=== PATIENT | male | born 1975 | race Caucasian/White ===

== ENCOUNTER → 2016-07-07 | Outpatient (CLI) | payer BC | LOC: COL.VAS 13:44 | DX: R55 Syncope and collapse (principal); R94.39 Abnormal result of other cardiovascular function study ==

== ENCOUNTER 2017-04-08 17:30 | Emergency (ER) | payer BC ==
[~2017-04-08] VITALS: Ht 182.9 cm; Wt 86.4 kg
[2017-04-08 17:33] VITALS: BP 136/76; TEMP 97.8
[2017-04-08 18:10] VITALS: PULSE 62
== END 2017-04-08 18:12 | disposition home or self-care (01) ==
LOC: COL.ER 17:30
DX: K64.5 Perianal venous thrombosis (principal)

== ENCOUNTER 2023-07-13 07:29 | Day surgery (SDC) | payer BC ==
[~2023-07-13] VITALS: Ht 182.9 cm; Wt 86.7 kg
[~2023-07-13 07:29] MED LIST: LR 1,000 ML IV SCH; Ondansetron 4 MG/2 ML VIAL IV PRN
[2023-07-13 08:26] VITALS: BP 110/84; PULSE 71; TEMP 96.2
[2023-07-13] MEDS ORDERED: Lidocaine PF 2% (20 MG/ML) 5 ML VIAL ONE (09:06)
[2023-07-13] MEDS ORDERED: fentaNYL 50 MCG/ML 2 ML VIAL ONE (09:07)
[2023-07-13 09:36] VITALS: BP 107/71; PULSE 63; TEMP 98
[2023-07-13 09:45] VITALS: BP 105/66; PULSE 65
[2023-07-13 10:00] VITALS: BP 109/67; PULSE 57
--- NOTE | 2023-07-13 10:16 | NUR ---
0936- PATIENT RETUR[place] [facility] [place]. PT AWAKE AND ALERT. RESPIRATIONS UNLABORED. AMBULATED TO RECLINER CHAIR WITH 2:1 SBA. PT DENIES NAUSEA OR ABDOMINAL PAIN. HOOKED UP TO MONITOR AND VS OBTAINED. CALL LIGHT AT SIDE AND FAMILY PRESENT. 0948- PATIENT TOLERATING WATER AND MUFFIN WITHOUT NAUSEA OR ABD PAIN. 1000- DR. JARAMILLO IN ROOM SPEAKING WITH PATIENT. 1006- D/C INSTRUCTIONS REVIEWED WITH PATIENT. PT VERBALIZED UNDERSTANDING AND A COPY OF INSTRUCTIONS PROVIDED IN D/C FOLDER. 1012- PATIENT DRESSES SELF. 1016- PATIENT DISCHARGED FROM UNIT VIA W/C TO A PERSONAL VEHICLE. PT LEFT HOSPITAL IN STABLE CONDITION.
== END 2023-07-13 10:16 | disposition home or self-care (01) ==
LOC: SDCO 07:29
DX: Z12.11 Encounter for screening for malignant neoplasm of colon (principal); K64.0 First degree hemorrhoids
CPT/HCPCS: J2704; J3010; J7120